=== PATIENT | male | born 1960 | race Caucasian/White ===

== ENCOUNTER 2019-05-18 20:18 | Emergency (ER) | payer OTHER ==
[~2019-05-18] VITALS: Ht 185.4 cm; Wt 117.9 kg
[2019-05-18] MEDS ORDERED: SEROQUEL100 MG PO (20:24)
== END 2019-05-18 20:50 | disposition home or self-care (01) ==
LOC: ED 20:18
DX: S01.01XD Laceration without foreign body of scalp, subsequent encounter (principal); E11.9 Type 2 diabetes mellitus without complications
CPT/HCPCS: 99281

== ENCOUNTER → 2019-06-05 | Emergency (ER) | payer OTHER ==
[~2019-06-05] VITALS: Ht 185.4 cm; Wt 113.4 kg
[~2019-06-05] MED LIST: AMLODIPINE BESYL5 MG PO; CYCLOBENZAPRINE10 MG PO; DICLOFENAC SODI75 MG PO; HYDROCHLOROTHIA25 MG PO; SEROQUEL100 MG PO; VALSARTAN-HCTZ1 EAC3 PO
--- OUTSIDE RECORDS SUMMARY | 2019-06-05 03:34 | XMS ---
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 Randee has no Care Guidelines for this patient. [facility] (12 MO.) [facility] T[facility] NOTE: Visits indicate total known visits. ED/C VISIT TRACKING (12 MO.) 06/05/2019 03:[address] [facility] [place] TYPE: Emergency COMPLAINT: - BACK PAIN 05/18/2019 20:19 [facility] [place] TYPE: Emergency COMPLAINT: - STAPLE REMOVAL FROM HEAD DIAGNOSES: - Laceration without foreign body of scalp, subsequent encounter - Encounter for removal of sutures - Type 2 diabetes mellitus without complications INPATIENT VISIT TRACKING (12 MO.) No inpatient visits to display in this time frame [email or web address]
== END ==
LOC: ED 03:32
DX: M54.5 Low back pain (principal); E11.9 Type 2 diabetes mellitus without complications; I10 Essential (primary) hypertension; Z79.899 Other long term (current) drug therapy
CPT/HCPCS: 72100; 96372; 99283; J1885